=== PATIENT | male | born 2000 | race Two or more races ===

== ENCOUNTER 2021-01-27 02:49 | Emergency (ER) | payer BC ==
[~2021-01-27] VITALS: Ht 172.7 cm; Wt 70.0 kg
[2021-01-27] MEDS ORDERED: IV NORMAL SALINE 1000ML BAG 1,000 ML IV SCH (03:00)
[2021-01-27] MEDS ORDERED: IV NORMAL SALINE 1000ML BAG 1,000 ML IV ONE (03:30)
[2021-01-27] MEDS ORDERED: METOCLOPRAMIDE HCL 10 MG/2 ML VIAL. IVP ONE (03:30)
[2021-01-27] MEDS ORDERED: FAMOTIDINE 20 MG/2 ML VIAL IVP ONE (03:30)
[2021-01-27 03:38] LABS: BASO # 0.1 x10^3/uL (0.0-0.2); BASO % 1 % (0-3); EOS # 0.1 x10^3/uL (0.0-0.7); EOS % 1 % (0-3); HEMATOCRIT 46.8 % (39.0-53.0); HEMOGLOBIN 15.6 g/dL (13.0-17.5); LYMPH % 14 % (24-48); MEAN CORPUSCULAR HEMOGLOBIN 28 pg (25-35); MEAN CORPUSCULAR HGB CONC 33 g/dL (31-37); MEAN CORPUSCULAR VOLUME 85 fL (79-100); MONO # 0.8 x10^3/uL (0.0-1.1); MONO % 6 % (0-9); NEUT # 11.5 x10^3/uL (1.8-7.7); NEUT % 79 % (31-73); PLATELET COUNT 303 x10^3/uL (140-400); RED BLOOD COUNT 5.52 x10^6/uL (4.30-5.70); RED CELL DISTRIBUTION WIDTH 13.3 % (11.5-14.5); WHITE BLOOD COUNT 14.6 x10^3/uL (4.0-11.0)
[2021-01-27 03:56] LABS: CALCIUM 8.8 mg/dL (8.5-10.1); CREATININE 1.8 mg/dL (0.7-1.3); GFR 47.4; POTASSIUM 3.1 mmol/L (3.5-5.1)
[2021-01-27 04:02] LABS: ACETAMIN < 2 mcg/ml (10-30); ALBUMIN 4.7 g/dL (3.4-5.0); ALBUMIN/GLOBULIN RATIO 1.5 (1.0-1.7); SALIC < 2.8 mg/dL (2.8-20.0); TOTAL BILIRUBIN 1.6 mg/dL (0.2-1.0); TOTAL PROTEIN 7.8 g/dL (6.4-8.2)
[2021-01-27 04:10] LABS: GASTRIC OB PAT POSITIVE (NEG)
--- NOTE | 2021-01-27 05:05 | RAD ---
CT HEAD AND C-SPINE WO History: Reason: seizure syncope / Spl. Instructions: / History: Comparison: None. Technique: Noncontrast CT imaging was performed of the head and cervical spine. Coronal and sagittal reconstructions were performed. Exposure: One or more of the following individualized dose reduction techniques were utilized for thi s examination: 1. Automated exposure control 2. Adjustment of the mA and/or kV according to patient size 3. Use of iterative reconstruction technique. Findings: Head CT: No intracranial hemorrhage. No mass effect. No hydrocephalus. Extra-axial spaces are unrema rkable. Imaged orbits are unremarkable. Imaged paranasal sinuses and mastoid air cells are clear. No acute ca lvarial fracture. Cervical spine CT: Normal vertebral body height and alignment. No fracture. Soft tissues unremarkable. Impression: Head CT: 1. No acute intracranial abnormality. Cervical spine CT: 1. No acute fracture or subluxation of the cervical spine. Electronically signed by: Rian Plummer DO (01/27/2021 5:03 AM) [facility]
--- NOTE | 2021-01-27 05:06 | EKG ---
[facility] [address] [place] [address] Test Date: 2021-01-27 Test Time: 02:55:51 Pat Name: ANNE WILSON Department: Room: Gender: Learning Specialist: : 2000 Requested By: PETE ELDER Order Number: [id number] Reading MD: Measurements Intervals [place] Rate: 111 P: 52 [place]: 160 QRS: 70 QRSD: 88 T: 12 QT: 316 QTc: 433 Interpretive Statements SINUS TACHYCARDIA OTHERWISE NORMAL ECG RI6.02 No previous ECG available for comparison
--- NOTE | 2021-01-27 05:13 | RAD ---
CT CHEST_ABDOMEN_ AND PELVIS WITHOUT CONTRAST History: Dark emesis Technique: CT of the chest, abdomen and pelvis were performed without contrast. Coronal and sagittal reconstructions were performed. Exposure: One or more of the following individualized dose reduction techniques were utilized for thi s examination: 1. Automated exposure control 2. Adjustment of the mA and/or kV according to patient size 3. Use of iterative reconstruction technique. Comparison: None Findings: Chest: Residual thymus within the anterior mediastinum. No pathologic lymphadenopathy. No consolidati on or pleural effusion. No pneumothorax. Abdomen and pelvis: The liver, spleen, adrenal glands, and pancreas are unremarkable. Cholelithiasis. No gallbladder wall thickening. No hydronephrosis. No renal calculi. No ureteral or urinary bladder calculi. Normal appendix. No evidence of bowel obstruction. No pathologic lymphadenopathy. No ascites. Bones: No pathologic osseous lesions. Impression: Chest CT: 1. No acute thoracic pathology. Abdomen and pelvis CT: 1. No acute abdominal or pelvic pathology. 2. Cholelithiasis. Electronically signed by: Rian Plummer DO (01/27/2021 5:10 AM) [facility]
--- NOTE | 2021-01-27 05:56 | PHYS DOC ---
General Adult EDM: Chief Complaint: SEIZURE HPI: HPI: 20-year-old male (PETE ELDER DO) Review of Systems: Review of Systems: Constitutional: Denies fever or chills. [] Eyes: Denies change in visual acuity. [] HENT: Denies nasal congestion or sore throat. [] Respiratory: Denies cough or shortness of breath. [] Cardiovascular: Denies chest pain or edema. [] GI: Denies abdominal pain, nausea, vomiting, bloody stools or diarrhea. [] : Denies dysuria. [] Musculoskeletal: Denies back pain or joint pain. [] Integument: Denies rash. [] Neurologic: Denies headache, focal weakness or sensory changes. [] Endocrine: Denies polyuria or polydipsia. [] Lymphatic: Denies swollen glands. [] Psychiatric: Denies depression or anxiety. [] (PETE ELDER DO) Heart Score: Risk Factors: Risk Factors: DM, Current or recent (<one month) smoker, HTN, HLP, family history of CAD, obesity. Risk Scores: Score 0 - 3: 2.5% MACE over next 6 weeks - Discharge Home Score 4 - 6: 20.3% MACE over next 6 weeks - Admit for Clinical Observation Score 7 - 10: 72.7% MACE over next 6 weeks - Early Invasive Strategies (PETE ELDER DO) C/O Chest Pain: No (RAYRAY BURNETTE MD) Current Medications: Current Medications Medications (Trade) Dose Ordered Sig/Cheryl Start Time Stop Time Status Last Admin Dose Admin Famotidine (Pepcid Vial) 80 mg 1X ONCE 01/27/21 03:30 01/27/21 03:40 DC 01/27/21 03:45 80 MG Metoclopramide HCl (Reglan Vial) 10 mg 1X ONCE 01/27/21 03:30 01/27/21 03:40 DC 01/27/21 03:44 10 MG Sodium Chloride 1,000 ml @ 1,000 mls/hr 1X ONCE 01/27/21 03:30 01/27/21 04:29 DC 01/27/21 03:46 1,000 MLS/HR (PETE ELDER DO) Allergies: Allergies: Allergies Coded Allergies Type Severity Reaction Last Updated Verified No Known Drug Allergies 01/27/21 No (VOHSPETE DO) Physical Exam: PE: Constitutional: Well developed, well nourished, no acute distress, non-toxic appearance. HENT: Normocephalic, atraumatic, Eyes: EOMI, conjunctiva normal, no discharge. Neck: Normal range of motion, supple, Cardiovascular: S1/2 present, regular rhythm Lungs & Thorax: Speaking in full sentences, bilateral equal chest rise, no tachypnea or increased work of breathing Abdomen: soft, no tenderness, Skin: Warm, dry, no erythema, no rash. [] Back: No tenderness, no CVA tenderness. [] Extremities: No tenderness, no cyanosis, no lower extremity edema Neurologic: Alert and oriented X 3, normal motor function, normal sensory function, no focal deficits noted. [] Psychologic: Affect normal, judgement normal, mood normal. [] ([facility]) Current Patient Data: Labs: Laboratory Tests Test 01/27/21 03:20 01/27/21 03:30 01/27/21 03:32 Gastric Fluid Occult Blood Positive (NEG) White Blood Count 14.6 x10^3/uL (4.0-11.0) H Red Blood Count 5.52 x10^6/uL (4.30-5.70) Hemoglobin 15.6 g/dL (13.0-17.5) Hematocrit 46.8 % (39.0-53.0) Mean Corpuscular Volume 85 fL (79-100) Mean Corpuscular Hemoglobin 28 pg (25-35) Mean Corpuscular Hemoglobin Concent 33 g/dL (31-37) Red Cell Distribution Width 13.3 % (11.5-14.5) Platelet Count 303 x10^3/uL (140-400) Neutrophils (%) (Auto) 79 % (31-73) H Lymphocytes (%) (Auto) 14 % (24-48) L Monocytes (%) (Auto) 6 % (0-9) Eosinophils (%) (Auto) 1 % (0-3) Basophils (%) (Auto) 1 % (0-3) Neutrophils # (Auto) 11.5 x10^3/uL (1.8-7.7) H Lymphocytes # (Auto) 2.0 x10^3/uL (1.0-4.8) Monocytes # (Auto) 0.8 x10^3/uL (0.0-1.1) Eosinophils # (Auto) 0.1 x10^3/uL (0.0-0.7) Basophils # (Auto) 0.1 x10^3/uL (0.0-0.2) Sodium Level 142 mmol/L (136-145) Potassium Level 3.1 mmol/L (3.5-5.1) L Chloride Level 103 mmol/L (98-107) Carbon Dioxide Level 26 mmol/L (21-32) Anion Gap 13 (6-14) Blood Urea Nitrogen 19 mg/dL (8-26) Creatinine 1.8 mg/dL (0.7-1.3) H Estimated GFR (Cockcroft-Gault) 47.4 BUN/Creatinine Ratio 11 (6-20) Glucose Level 191 mg/dL (70-99) H Lactic Acid Level 3.3 mmol/L (0.4-2.0) H Calcium Level 8.8 mg/dL (8.5-10.1) Magnesium Level 2.0 mg/dL (1.8-2.4) Total Bilirubin 1.6 mg/dL (0.2-1.0) H Aspartate Amino Transferase (AST) 16 U/L (15-37) Alanine Aminotransferase (ALT) 18 U/L (16-63) Alkaline Phosphatase 67 U/L (46-116) Troponin I Quantitative < 0.017 ng/mL (0.000-0.055) Total Protein 7.8 g/dL (6.4-8.2) Albumin 4.7 g/dL (3.4-5.0) Albumin/Globulin Ratio 1.5 (1.0-1.7) Lipase 94 U/L (73-393) Salicylates Level < 2.8 mg/dL (2.8-20.0) L Salicylate Last Dose Date Salicylate Last Dose Time Acetaminophen Level < 2 mcg/ml (10-30) L Acetaminophen Last Dose Date Acetaminophen Last Dose Time Acetone Level Neg (NEG) Glucose (Fingerstick) 168 mg/dL (70-99) H Laboratory Tests 01/27/21 03:30 Laboratory Tests 01/27/21 03:30 ([facility]) EKG: EKG: Sinus tachycardia 111 bpm, no axis deviation, normal intervals, T wave inversion lead III, no ST elevations or ST depressions (PETE ELDER DO) Radiology/Procedures: Radiology/Procedures: [] (PETE ELDER DO) Course & Med Decision Making: Course & Med Decision Making Pertinent Labs and Imaging studies reviewed. (See chart for details) [] (PETE ELDER DO) Course & Med Decision Making Accepted patient care at shift change. Patient is pending UDS and repeat troponin. Repeat troponin negative. Patient is elevated lactic acid and creatinine. Patient tolerating p.o., discussed further fluid resuscitation emergency department versus Zofran and increasing fluid intake at home. Patient states he feels well and would like to go home. Advised patient and his blood sugar and creatinine was elevated and he is advised see primary care to follow-up. Patient agreeable discussed return precautions. (RAYRAY BURNETTE MD) Dragon Disclaimer: Dragon Disclaimer: This electronic medical record was generated, in whole or in part, using a voice recognition dictation system. (PETE ELDER DO) Departure Departure Impression: Primary Impression: Dehydration Additional Impression: Nausea & vomiting Disposition: 01 HOME / SELF CARE / HOMELESS Condition: STABLE Referrals: NO PCP (PCP) Patient Instructions: Dehydration, Adult Scripts Ondansetron (ONDANSETRON ODT) 4 Mg Tab.rapdis 1 TAB PO PRN Q6-8HRS PRN for NAUSEA, #16 TAB Prov: RAYRAY BURNETTE MD 01/27/21 PETE ELDER DO Jan 27, 2021 05:56 RAYRAY BURNETTE MD Jan 27, 2021 07:38
[2021-01-27 06:57] LABS: BILIRUBIN,URINE NEGATIVE (NEG); CLARITY,URINE CLEAR; COLOR,URINE YELLOW; NITRITE,URINE NEGATIVE (NEG); PROTEIN,URINE 30 mg/dL (NEG-TRACE)
[2021-01-27] MEDS ORDERED: ONDANSETRON PF 4 MG/2 ML VIAL. IVP ONE (07:00)
[2021-01-27 07:03] LABS: BARBITURATES NEG (NEG); BENZODIAZEPINES NEG (NEG); CANNABINOIDS NEG (NEG); COCAINE NEG (NEG); METHADONE NEG (NEG); OPIATES NEG (NEG); PHENCYCLIDINE NEG (NEG)
[2021-01-27 07:06] LABS: AMPHETAMINE/METHAMPHETAMINE NEG (NEG)
[2021-01-27 07:18] LABS: HYALINE CASTS, URINE MANY /HPF
[2021-01-27 07:19] LABS: BACTERIA,URINE FEW /HPF (0-FEW); RBC,URINE 0 /HPF (0-2)
[2021-01-27] MEDS ORDERED: ONDA4TAB12 PO (07:38)
[2021-01-27 07:51] VITALS: BP 111/57
== END 2021-01-27 08:15 | disposition home or self-care (01) ==
LOC: ER 02:49
DX: E86.0 Dehydration (principal); R11.2 Nausea with vomiting, unspecified; R51.9 Headache, unspecified
CPT/HCPCS: 36415; 70450; 71250; 72125; 74176; 80053; 80307; 80329; 81001; 82010; 82271; 82962; 83605; 83690; 83735; 83880; 83930; 84484; 85025; 87040; 93005; 96361; 96374; 96375; 99285; J2765; J3490; J7030; G0480